=== PATIENT | male | born 1990 | race Caucasian/White ===

== ENCOUNTER 2020-02-05 22:05 | Emergency (ER) | payer OTHER ==
[~2020-02-05] VITALS: Ht 180.3 cm; Wt 130.0 kg
[2020-02-05] MEDS ORDERED: IBUPROFEN 600MG TABLET PO STA (22:40)
[2020-02-05 23:51] LABS: CHLORIDE 104 mEq/L (98-107)
[2020-02-05 23:56] LABS: ETHANOL BLOOD < 10 mg/dL
[2020-02-06 00:13] LABS: HEMATOCRIT. 28.9 % (42.0-52.0); HEMOGLOBIN. 8.9 g/dL (14.0-18.0); MEAN CORPUSCULAR HEMOGLOBIN 21.9 pg (28.0-32.0); MEAN CORPUSCULAR VOLUME 71.2 fL (80.0-94.0); MEAN PLATELET VOLUME 8.1 fl (7.4-10.4); PLATELET 513 x1000/uL (130-400); RED BLOOD CELL COUNT 4.06 mill/uL (4.7-6.1)
[2020-02-06 00:20] LABS: PLATELET ESTIMATE SLIGHTLY INCREASED
[2020-02-06 08:30] VITALS: BP 141/90
== END 2020-02-06 09:28 | disposition home or self-care (01) ==
LOC: ER 22:05
DX: K43.9 Ventral hernia without obstruction or gangrene (principal); D64.9 Anemia, unspecified; I10 Essential (primary) hypertension; F17.210 Nicotine dependence, cigarettes, uncomplicated; Z90.81 Acquired absence of spleen; Z59.0 Homelessness; Z75.1 Person awaiting admission to adequate facility elsewhere
CPT/HCPCS: 36415; 74176; 80053; 80320; 85025; 99284; G0480

== ENCOUNTER 2020-03-09 23:37 | Emergency (ER) | payer OTHER ==
[~2020-03-09] VITALS: Ht 170.2 cm; Wt 133.0 kg
[2020-03-10] MEDS ORDERED: SODIUM CHLORIDE 0.9% 1,000 ML IV ONE (01:18)
[2020-03-10] MEDS ORDERED: KETOROLAC 30MG/ML VIAL IV STA (01:18)
[2020-03-10] MEDS ORDERED: DIATR MEGLU/DIATRIZOATE SOLN 30ML ONE (01:44)
[2020-03-10 01:45] LABS: HEMOGLOBIN. 8.1 g/dL (14.0-18.0); MEAN CORPUSCULAR HEMOGLOBIN 22.4 pg (28.0-32.0); MEAN CORPUSCULAR VOLUME 71.7 fL (80.0-94.0); PLATELET 716 x1000/uL (130-400); RED BLOOD CELL COUNT 3.63 mill/uL (4.7-6.1)
[2020-03-10] MEDS ORDERED: IOHEXOL-300 100 ML BOTTLE ONE (01:45)
[2020-03-10 01:53] LABS: CHLORIDE 103 mEq/L (98-107)
[2020-03-10 01:58] LABS: ETHANOL BLOOD 89 mg/dL
[2020-03-10 02:29] LABS: PLATELET ESTIMATE INCREASED
[2020-03-10 02:39] LABS: CLARITY URINE CLEAR (CLEAR); COLOR URINE YELLOW (YELLOW); KETONES URINE NEGATIVE (NEGATIVE); LEUKOCYTE ESTERASE URINE NEGATIVE (NEGATIVE); NITRITE URINE NEGATIVE (NEGATIVE); OCCULT BLOOD URINE NEGATIVE (NEGATIVE); PROTEIN URINE NEGATIVE (NEGATIVE); SPECIFIC GRAVITY URINE 1.002 (1.005-1.030); UROBILINOGEN URINE 0.2 E.U./dL (0.2-1.0)
[2020-03-10 02:56] LABS: *AMPHETAMINES SCREEN URINE NEGATIVE (NEGATIVE); *BARBITURATES SCREEN URINE NEGATIVE (NEGATIVE)
[2020-03-10 02:57] LABS: *BENZODIAZEPINES SCREEN URINE NEGATIVE (NEGATIVE); *COCAINE SCREEN URINE NEGATIVE (NEGATIVE); CANNABINOID URINE SCREEN NEGATIVE (NEGATIVE); METHADONE URINE SCREEN NEGATIVE (NEGATIVE); OPIATES URINE SCREEN NEGATIVE (NEGATIVE); PHENCYCLIDINE URINE SCREEN NEGATIVE (NEGATIVE)
[2020-03-10 05:20] VITALS: BP 147/84
== END 2020-03-10 05:35 | disposition home or self-care (01) ==
LOC: ER 23:37
DX: K43.9 Ventral hernia without obstruction or gangrene (principal); I10 Essential (primary) hypertension; E66.9 Obesity, unspecified; Z68.42 Body mass index [BMI] 45.0-49.9, adult; Z90.81 Acquired absence of spleen
CPT/HCPCS: 36415; 74177; 80053; 80305; 80320; 81003; 83605; 83690; 85025; 87040; 93005; 96361; 96374; 99285; J1885; J7030; Q9963; Q9967; G0480